=== PATIENT | male | born 1940 | race Caucasian/White ===

== ENCOUNTER 2017-03-28 11:13 | Inpatient (IN) | payer MEDICARE ==
[~2017-03-28] VITALS: Ht 172.7 cm; Wt 70.6 kg
[~2017-03-28 11:13] MED LIST: ASPI81TA44; ATOR1TAB18 PO; BENZ100 PO; NITR.3 SL; PERI8.6T PO; POLY17PO3 PO; PRAS10TA PO; TAMS0.4C67 PO
[2017-03-28 11:14] VITALS: BP 196/94; PULSE 87; RESP 17; TEMP 98.8; O2SAT 98
--- NOTE | 2017-03-28 12:07 | PD ---
HPI Chief Complaint: Complaint Time Seen by Provider: 12:03 Travel History International Travel<30 days: No Contact w/Intl Traveler<30days: No Traveled to known affect area: No History of Present Illness HPI This is a 77-year-old male who presents for evaluation. The primary complaint today is of pain to the lateral aspect of his right lower torso above the iliac crest. He reports that this pain comes and goes and seems to be worse at night. He is not currently experiencing the pain. He had an uncomfortable night last night and this is what prompted evaluation today. In addition to this the patient reports a history of urinary hesitancy, dribbling, dysuria for 10-15 years that seems to be worse over the past few months. He is being referred to a urologist by his primary care physician Dr. Nuñez. In addition the patient is complaining of constipation for the past 10 days. He reports that his only had 2 bowel movements over the past 10 days. He has tried prune juice, MiraLAX with minimal relief. He saw his primary care physician yesterday and was prescribed Fouzia-Colace which he has not yet started to take. It appears that he is being referred to gastroenterology as an outpatient as well as nephrology. He has orders from his primary care physician for outpatient KUB x-ray, kidney ultrasound and he was hoping that he can have these done today instead of tomorrow as they were scheduled. He is denying any abdominal pain, flank pain, fevers or chills, vomiting. Other than MiraLAX, he denies any recent medication changes. he has no other complaints at this time. PFSH Past Medical History Blood Disorders: No Anxiety: No Depression: No Cancer: No Cardiovascular Problems: Yes High Cholesterol: Yes Chemotherapy: No Chest Pain: No Congestive Heart Failure: No Diminished Hearing: No Endocrine: No Genitourinary: No Hypertension: No Immune Disorder: No Musculoskeletal: No Neurologic: No Psychiatric: No Reproductive: No Respiratory: Yes Immunizations Current: Yes Myocardial Infarction: Yes (02- 3 STENTS) Radiation Therapy: No Past Surgical History Abdominal Surgery: No Cardiac Surgery: Yes (STENTS ) Coronary Stent: Yes (2001) Ear Surgery: No Endocrine Surgery: No Eye Surgery: No Genitourinary Surgery: No Gynecologic Surgery: No Oral Surgery: No Thoracic Surgery: No Social History Alcohol Use: No Tobacco Use: No Substance Use: No Allergies-Medications (Allergen,Severity, Reaction): Coded Allergies: No Known Allergies (Verified , 03/28/17) Reported Meds & Prescriptions Reported Meds & Active Scripts Active Fouzia-Colace (Sennosides-Docusate Sodium) 8.6-50 Mg Tab 1 Tab PO BID PRN Miralax (Polyethylene Glycol 3350) 17 Gram Powd.pack 1 Pack PO DAILY 17 g (~1 heaping tablespoon) dissolved in 120 to 240 mL (4 to 8 ounces) of beverage, once daily Tessalon Perles (Benzonatate) 100 Mg Cap 200 Mg PO TID PRN Atorvastatin (Atorvastatin Calcium) 80 Mg Tab 80 Mg PO HS Flomax (Tamsulosin HCl) 0.4 Mg Cap 0.4 Mg PO BID Reported Aspirin Enteric Coated Adult (Aspirin) 81 Mg Tabdr Nitrostat SL (Nitroglycerin) 0.3 Mg Subl 0.3 Mg SL DIRECTED PRN ONE TABLET UNDER THE TONGUE NEEDED FOR CHEST PAIN, MAY REPEAT EVERY FIVE MINUTES FOR A TOTAL OF 3 DOSES OR CALL 911 IF NO RELIEF Effient (Prasugrel) 10 Mg Tab 10 Mg PO DAILY Review of Systems Except as stated in HPI: all other systems reviewed are Neg Physical Exam Narrative GENERAL: Well-developed well-nourished male in no acute distress SKIN: Warm and dry. HEAD: Atraumatic. Normocephalic. EYES: Pupils equal and round. No scleral icterus. No injection or drainage. ENT: No nasal bleeding or discharge. Mucous membranes pink and moist. NECK: Trachea midline. No JVD. CARDIOVASCULAR: Regular rate and rhythm. No murmur appreciated. RESPIRATORY: No accessory muscle use. Clear to auscultation. Breath sounds equal bilaterally. GASTROINTESTINAL: Abdomen soft, mild right lower quadrant tenderness to deep palpation without guarding. Somewhat distended over the bladder. There is no CVA tenderness. Rectal examination reveals no evidence of impaction. MUSCULOSKELETAL: No obvious deformities. No clubbing. No cyanosis. No edema. NEUROLOGICAL: Awake and alert. No obvious cranial nerve deficits. Motor grossly within normal limits. Normal speech. PSYCHIATRIC: Appropriate mood and affect; insight and judgment normal. Data Data Last Documented VS Vital Signs Date Time Temp Pulse Resp B/P (MAP) Pulse Ox O2 Delivery O2 Flow Rate FiO2 03/28/17 11:14 98.8 87 17 196/94 (128) 98 Orders Orders Complete Blood Count With Diff (03/28/17 12:02) Comprehensive Metabolic Panel (03/28/17 12:02) Lipase (03/28/17 12:02) Urinalysis - C+S If Indicated (03/28/17 12:02) Iv Access Insert/Monitor (03/28/17 12:02) Abdomen, Kub Only (03/28/17 12:02) Bladder Scan PRN (03/28/17 12:11) Urinary Catheter Management SHANA.Q8H (03/28/17 12:15) Urinary Catheter Insert/Apply (03/28/17 12:18) Ct Abd/Pel W/O Iv Contrast (03/28/17 12:55) Admit Order (Ed Use Only) (03/28/17 13:10) Labs Laboratory Tests Test 03/28/17 12:10 03/28/17 12:15 Urine Color LIGHT-YELLOW Urine Turbidity CLEAR Urine pH 5.5 Urine Specific [place] 1.008 Urine Protein NEG mg/dL Urine Glucose (UA) NEG mg/dL Urine Ketones NEG mg/dL Urine Occult Blood NEG Urine Nitrite NEG Urine Bilirubin NEG Urine Urobilinogen LESS THAN 2.0 MG/DL Urine Leukocyte Esterase NEG Urine RBC 1 /hpf Urine WBC 2 /hpf Microscopic Urinalysis Comment CULT NOT INDICATED White Blood Count 7.4 TH/MM3 Red Blood Count 4.44 MIL/MM3 Hemoglobin 13.3 GM/DL Hematocrit 39.9 % Mean Corpuscular Volume 90.0 FL Mean Corpuscular Hemoglobin 30.0 PG Mean Corpuscular Hemoglobin Concent 33.3 % Red Cell Distribution Width 14.4 % Platelet Count 182 TH/MM3 Mean Platelet Volume 8.2 FL Neutrophils (%) (Auto) 73.9 % Lymphocytes (%) (Auto) 15.3 % Monocytes (%) (Auto) 8.4 % Eosinophils (%) (Auto) 2.0 % Basophils (%) (Auto) 0.4 % Neutrophils # (Auto) 5.5 TH/MM3 Lymphocytes # (Auto) 1.1 TH/MM3 Monocytes # (Auto) 0.6 TH/MM3 Eosinophils # (Auto) 0.1 TH/MM3 Basophils # (Auto) 0.0 TH/MM3 CBC Comment DIFF FINAL Differential Comment Blood Urea Nitrogen 76 MG/DL Creatinine 9.44 MG/DL Random Glucose 88 MG/DL Total Protein 6.8 GM/DL Albumin 3.4 GM/DL Calcium Level 8.4 MG/DL Alkaline Phosphatase 78 U/L Aspartate Amino Transf (AST/SGOT) 16 U/L Alanine Aminotransferase (ALT/SGPT) 20 U/L Total Bilirubin 0.7 MG/DL Sodium Level 140 MEQ/L Potassium Level 5.1 MEQ/L Chloride Level 108 MEQ/L Carbon Dioxide Level 23.6 MEQ/L Anion Gap 8 MEQ/L Estimat Glomerular Filtration Rate 5 ML/MIN Lipase 837 U/L [facility] Medical Decision Making Medical Screen Exam Complete: Yes Emergency Medical Condition: Yes Medical Record Reviewed: Yes Differential Diagnosis Constipation, obstruction, fecal impaction, postobstructive uropathy, BPH, urinary retention, renal stone Narrative Course 77-year-old male with BPH presents with chronic urinary hesitancy, worse over the past 2 months, now also with constipation for the past 10 days, intermittent pains in the right side of his torso, worse at night. On examination he does have some distention over the bladder. He has mild right lower quadrant tenderness with deep palpation. Rectal examination reveals no evidence of fecal impaction. Plan a basic lab work, KUB. A Enrique catheter is placed with over 2 L of urine output. The patient reports significant improvement in his symptoms after the Enrique catheter placement. His CMP reveals a BUN of 76, creatinine 9.44, lipase 837. CONCLUSION: Large abdominal mass. Contrasted CT abdomen/pelvis recommended. Discussed with Dr. [place] and a CT of the abdomen and pelvis with oral contrast without IV contrast has been ordered. The patient will be admitted to the resident team for further evaluation and treatment. Diagnosis Primary Impression: Acute renal failure Qualified Codes: N17.9 - Acute kidney failure, unspecified Additional Impression: Urinary retention Admitting Information Admitting Physician Requests: it Sameer Birch Mar 28, 2017 12:07
[2017-03-28 12:32] LABS: BLOOD, URINE NEG (NEG); GLUCOSE,URINE NEG (NEG); KETONE, URINE NEG (NEG); NITRITE,URINE NEG (NEG); PH, URINE 5.5 (5.0-8.5); URINE COLOR LIGHT-YELLOW (YELLW/STRAW)
[2017-03-28 12:33] LABS: COMMENT (UR) CULT NOT INDICATED; CULTURE IF INDICATED CULT NOT INDICATED
[2017-03-28 12:35] LABS: AUTOMATED NEUTROPHIL # 5.5 TH/MM3 (1.8-7.7); BASOPHIL % 0.4 % (0.0-2.0); EOSINOPHIL # 0.1 TH/MM3 (0-0.4); HEMATOCRIT 39.9 % (39.0-51.0); HEMO FLAGS DIFF FINAL; LYMPH % 15.3 % (9.0-44.0); LYMPHOCYTE # 1.1 TH/MM3 (1.0-4.8); MEAN CORPUSCULAR HGB CONC 33.3 % (32.0-36.0); MONO % 8.4 % (0.0-8.0); NEUT % 73.9 % (16.0-70.0); PLATELET COUNT 182 TH/MM3 (150-450); RED BLOOD COUNT 4.44 MIL/MM3 (4.50-5.90); RED CELL DISTRIBUTION WIDTH 14.4 % (11.6-17.2); WHITE BLOOD COUNT 7.4 TH/MM3 (4.0-11.0)
--- NOTE | 2017-03-28 12:46 | RADRPT ---
EXAM DATE/TIME: 03/28/2017 12:12 [place] COMPARISON: No previous studies available for comparison. INDICATIONS : Right side abdomen pain MEDICAL HISTORY : None. SURGICAL HISTORY : None. ENCOUNTER: Initial ACUITY: 2 days PAIN SCORE: 6/10 LOCATION: Right Abdomen FINDINGS: Supine view of the abdomen was performed. The abdominal bowel gas pattern is normal. Large mass in t he central abdomen measuring approximately 21.1 x 17.2 cm. Presumed phleboliths in the pelvis. The o sseous structures are unremarkable. CONCLUSION: Large abdominal mass. Contrasted CT abdomen/pelvis recommended. Osito Delgado MD on March 28, 2017 at 12:44 Board Certified Radiologist. This report was verified electronically.
[2017-03-28 12:51] LABS: ANION GAP 8 MEQ/L (5-15); AST (GOT) 16 U/L (15-37); BICARBONATE 23.6 MEQ/L (21.0-32.0); BLOOD UREA NITROGEN 76 MG/DL (7-18); CHLORIDE 108 MEQ/L (98-107); GLOMERULAR FILTRATION RATE 5 ML/MIN (>89); POTASSIUM 5.1 MEQ/L (3.5-5.1); SODIUM (NA) 140 MEQ/L (136-145)
[2017-03-28 12:53] LABS: ALT (GPT) 20 U/L (12-78)
[2017-03-28 12:54] LABS: ALKALINE PHOSPHATASE 78 U/L (45-117); TOTAL BILIRUBIN ADULT 0.7 MG/DL (0.2-1.0)
[2017-03-28 13:28] VITALS: BP 155/78; PULSE 57; RESP 16; O2SAT 97
[2017-03-28] MEDS ORDERED: DIATRIZOATE MEGLUM/DIATRIZOATE SOD 9 ML CUP PO ONE (13:28)
[2017-03-28] MEDS ORDERED: DIATRIZOATE MEGLUM/DIATRIZOATE SOD 9 ML CUP ONE (13:32)
--- NOTE | 2017-03-28 13:52 | HHI.HP ---
[facility] Service Family Medicine Primary Care Physician Carlos Collazo , Gutierrez Nuñez MD Admission Diagnosis acute renal failure, urinary retention Diagnoses: International Travel<30 Days: No Contact w/Intl Traveler<30days: No Known Affected Area: No History of Present Illness Patient is a 77 year old man with a h/o BPH who p/w a chief complaint of not being able to urinate or have a bowel movement. Patient reports that he has had problems urinating for at least 15 years. He reports that he occasionally feels his bladder overflowing and can empty his bladder with some associated dysuria. However, more recently, he now he feels the urge to pee every hour, and he does not feel that he can fully empty his bladder. In response, he has cut his water intake way back. Also, he has been on Flomax for several years, then doubled the dose. Since then, he has tried changing when he takes it, so recently he has been taking it first thing in the morning. He reports that while driving, he doesn't have to pee, but has to go urgently when he gets home. He reports that he hasn't been moving his bowels normally for about a year. He describes pencil thin stools, small stool volume. He says he is in a pattern of not stooling for 3 days, then having small stools throughout one day. This cycling has been going on for almost a year. 4-5 days ago, he tried MiraLAX prescribed by his PCP Dr. Nuñez. He then tried prune juice, which worked initially. He tried prune juice again and had nausea. His last small BM was last night. His last good BM was a couple days ago. He also c/o occasional right hip discomfort that keeps him up at night, preventing him from sleeping. He is being referred to a urologist by his primary care physician Dr. Nuñez. He is being referred to gastroenterology as an outpatient as well as nephrology. He has orders from his primary care physician for outpatient KUB x- ray, kidney ultrasound. He is denying any abdominal pain, flank pain, fevers or chills, vomiting. Review of Systems Constitutional: COMPLAINS OF: Fatigue, Weight loss (lost 15 pounds in 6 months) , Dizziness (early in the morning), Change in appetite (decreased), DENIES: Fever, Chills Endocrine: DENIES: Polydipsia, Polyuria, Polyphagia Eyes: DENIES: Blurred vision, Diplopia, Vision loss, Double Vision Ears, nose, mouth, throat: COMPLAINS OF: Hearing loss (chronic), DENIES: Throat pain, Running Nose, Sinus Pain Respiratory: DENIES: Cough, Wheezing, Shortness of breath Cardiovascular: DENIES: Chest pain, Dyspnea on Exertion, Lower Extremity Edema Gastrointestinal: COMPLAINS OF: Constipation, Nausea, DENIES: Abdominal pain, Black stools, Bloody stools, Diarrhea, Vomiting Genitourinary: COMPLAINS OF: Urinary frequency, Urgency, Dysuria Musculoskeletal: COMPLAINS OF: Joint pain (right hip hurts to lay on it), DENIES: Back pain, Neck pain Integumentary: DENIES: Pruritus, Rash Hematologic/lymphatic: DENIES: Bruising, Lymphadenopathy Neurologic: COMPLAINS OF: Poor Balance (early in the morning), DENIES: Abnormal gait, Headache, Localized weakness, Paresthesias Psychiatric: DENIES: Mood changes, Depression Past Family Social History Past Medical History [place] x 2, 1999 and 2009 Immunology Teacher: Dr. Ortiz Last visit was 2012 CAD BPH Health maintenance: Lipids: DM screen: SBP >135 BMI above 25 FH of DM Flu shot: Tdap: Colonoscopy: 2012 and was nml per pt. Rpt 2022 Zostavax age 61: Ordered script and gave to pt to take to outside pharmacy. Pneumovax age 65 or earlier if DM or COPD: Past Surgical History stents 1999, 2009, stents x 2 in February, after having abnormal stress test Allergies: Coded Allergies: No Known Allergies (Verified , 03/28/17) Family History mother - old age, father - old age, sister - breast CA, 2 sons - DM, daughter- healthy, 3rd son- healthy Social History tobacco: none currently, smoked 1 year at age 21. ETOH: 1 beer/year. Drugs: none. Lives with , son, [id number], grandkids. Retired, prior lead quality technician. Physical Exam Vital Signs Vital Signs Date Time Temp Pulse Resp B/P (MAP) Pulse Ox O2 Delivery O2 Flow Rate FiO2 03/28/17 13:28 57 16 155/78 (103) 97 Room Air 03/28/17 11:14 98.8 87 17 196/94 (128) 98 Physical Exam GENERAL: This is a well-nourished, well-developed patient, in no apparent distress. SKIN: No rashes, ecchymoses or lesions. Cool and dry. HEAD: Atraumatic. Normocephalic. EYES: Pupils equal round and reactive. Extraocular motions intact. No scleral icterus. No injection or drainage. ENT: Nose without bleeding, purulent drainage or septal hematoma. Throat without erythema, tonsillar hypertrophy or exudate. Uvula midline. Airway patent. NECK: Trachea midline. No JVD or lymphadenopathy. Supple, nontender, no meningeal signs. CARDIOVASCULAR: Regular rate and rhythm without murmurs, gallops, or rubs. RESPIRATORY: Clear to auscultation. Breath sounds equal bilaterally. No wheezes , rales, or rhonchi. GASTROINTESTINAL: Abdomen soft, non-tender, nondistended. No hepato-splenomegaly , or palpable masses. No guarding. MUSCULOSKELETAL: Extremities without clubbing, cyanosis, or edema. No joint tenderness, effusion, or edema noted. No calf tenderness. NEUROLOGICAL: Awake and alert. Cranial nerves II through XII grossly intact. Motor and sensory grossly within normal limits. Normal speech. Laboratory Laboratory Tests Test 03/28/17 12:10 03/28/17 12:15 Urine Color LIGHT-YELLOW Urine Turbidity CLEAR Urine pH 5.5 Urine Specific [place] 1.008 Urine Protein NEG Urine Glucose (UA) NEG Urine Ketones NEG Urine Occult Blood NEG Urine Nitrite NEG Urine Bilirubin NEG Urine Urobilinogen LESS THAN 2.0 Urine Leukocyte Esterase NEG Urine RBC 1 Urine WBC 2 Microscopic Urinalysis Comment CULT NOT INDICATED White Blood Count 7.4 Red Blood Count 4.44 Hemoglobin 13.3 Hematocrit 39.9 Mean Corpuscular Volume 90.0 Mean Corpuscular Hemoglobin 30.0 Mean Corpuscular Hemoglobin Concent 33.3 Red Cell Distribution Width 14.4 Platelet Count 182 Mean Platelet Volume 8.2 Neutrophils (%) (Auto) 73.9 Lymphocytes (%) (Auto) 15.3 Monocytes (%) (Auto) 8.4 Eosinophils (%) (Auto) 2.0 Basophils (%) (Auto) 0.4 Neutrophils # (Auto) 5.5 Lymphocytes # (Auto) 1.1 Monocytes # (Auto) 0.6 Eosinophils # (Auto) 0.1 Basophils # (Auto) 0.0 CBC Comment DIFF FINAL Differential Comment Blood Urea Nitrogen 76 Creatinine 9.44 Random Glucose 88 Total Protein 6.8 Albumin 3.4 Calcium Level 8.4 Alkaline Phosphatase 78 Aspartate Amino Transf (AST/SGOT) 16 Alanine Aminotransferase (ALT/SGPT) 20 Total Bilirubin 0.7 Sodium Level 140 Potassium Level 5.1 Chloride Level 108 Carbon Dioxide Level 23.6 Anion Gap 8 Estimat Glomerular Filtration Rate 5 Lipase 837 Result Diagram: 03/28/17 1215 03/28/17 1215 Imaging Last Impressions Abdomen/Pelvis CT 03/28/17 1255 Signed Impressions: Service Date/Time: March 15:05 - CONCLUSION: 1. Enlarged prostate with thickened bladder wall most characteristic of chronic urinary outflow obstruction. There is air within the bladder and a Enrique catheter. There is moderate left sided and moderate to severe right-sided hydronephrosis. No ureteral calculi identified. There is a calcification either within the posterior bladder wall or possibly within the bladder lumen measuring about 4 mm in diameter. 2. Numerous hepatic cysts. 3. Severe coronary calcifications. 4. Colonic diverticulosis. Helder Davis MD Abdomen X-Ray 03/28/17 1202 Signed Impressions: Service Date/Time: March 12:12 - CONCLUSION: Large abdominal mass. Contrasted CT abdomen/pelvis recommended. Osito Delgado MD Renal Ultrasound 03/28/17 0000 Signed Impressions: Service Date/Time: March 14:45 - CONCLUSION: 1. Markedly abnormal bladder wall thickening and enlarged prostate. Enrique catheter present. Bilateral hydronephrosis, right greater than left. Helder Davis MD Course In the emergency department, patient had abdomen/KUB x-ray, UA, CBC, CMP, lipase , bladder scan, Enrique catheter insertion, CT abdomen and pelvis, admission order. Caprini VTE Risk Assessment Caprini VTE Risk Assessment: Mod/High Risk (score >= 2) Caprini Risk Assessment Model Point Value = 1 Point Value = 2 Point Value = 3 Point Value = 5 Age 41-60 Minor surgery BMI > 25 kg/m2 Swollen legs Varicose veins or History of unexplained or recurrent spontaneous Oral contraceptives or hormone replacement Sepsis (< 1 month) Serious lung disease, including pneumonia (< 1 month) Abnormal pulmonary function Acute myocardial infarction Congestive heart failure (< 1 month) History of inflammatory bowel disease Medical patient at bed rest Age 61-74 Arthroscopic surgery Major open surgery (> 45 min) Laparoscopic surgery (> 45 min) Malignancy Confined to bed (> 72 hours) Immobilizing plaster cast Central venous access Age >= 75 History of VTE Family history of VTE Factor V Leiden Prothrombin [id number] Lupus anticoagulant Anticardiolipin antibodies Elevated serum homocysteine Heparin-induced thrombocytopenia Other congenital or acquired thrombophilia Stroke (< 1 month) Elective arthroplasty Hip, pelvis, or leg fracture Acute spinal cord injury (< 1 month) Prophylaxis Regimen Total Risk Factor Score Risk Level Prophylaxis Regimen 0-1 Low Early ambulation 2 Moderate Order ONE of the following: *Sequential Compression Device (SCD) *Heparin 5000 units SQ BID 3-4 Higher Order ONE of the following medications: *Heparin 5000 units SQ TID *Enoxaparin/Lovenox 40 mg SQ daily (WT < 150 kg, CrCl > 30 mL/min) *Enoxaparin/Lovenox 30 mg SQ daily (WT < 150 kg, CrCl > 10-29 mL/min) *Enoxaparin/Lovenox 30 mg SQ BID (WT < 150 kg, CrCl > 30 mL/min) AND/OR *Sequential Compression Device (SCD) 5 or more Highest Order ONE of the following medications: *Heparin 5000 units SQ TID (Preferred with Epidurals) *Enoxaparin/Lovenox 40 mg SQ daily (WT < 150 kg, CrCl > 30 mL/min) *Enoxaparin/Lovenox 30 mg SQ daily (WT < 150 kg, CrCl > 10-29 mL/min) *Enoxaparin/Lovenox 30 mg SQ BID (WT < 150 kg, CrCl > 30 mL/min) AND *Sequential Compression Device (SCD) Assessment and Plan Assessment and Plan Patient is a 77 year old man with a h/o BPH who p/w a chief complaint of not being able to urinate or have a bowel movement, found to have BUN of 76, creatinine of 9.44, over 2 L in his bladder that drained out after Enrique catheter insertion. Urinary obstruction is likely due to combination of BPH and constipation. Called urologist Dr. Paredes to briefly discuss case. Dr. Paredes recommended continuing the Enrique catheter and fluid hydration, discharging the patient with Enrique catheter in place, following-up as an outpatient with urology where they can attempt voiding trials. Code Status Full code Discussed Condition With Will discuss with Dr. Torres and/or Dr. Ferrer. Problem List: (1) Urinary retention ICD Codes: R33.9 - Retention of urine, unspecified Status: Acute Plan: -Continue Enrique cath -pain meds PRN -nausea meds PRN -CT abd/pelvis showed enlarged prostate with thickened bladder consistent with chronic urinary outflow obstruction, moderate to severe hydronephrosis (2) Acute renal failure ICD Codes: N17.9 - Acute kidney failure, unspecified Status: Acute Plan: -IV NS bolus -patient tolerating PO well; encourage PO intake -Maintenance IV fluids of normal saline at 110 ml/hr -Continue to monitor -renal US showed bilateral hydronephrosis, right greater than left (3) Constipation ICD Codes: K59.00 - Constipation, unspecified Status: Acute Plan: -Fouzia-Colace by mouth twice a day, MiraLAX by mouth daily -Other anti-constipation medications when necessary -Outpatient GI follow-up for colonoscopy because history concerning for colon cancer (4) BPH (benign prostatic hyperplasia) ICD Codes: N40.0 - Benign prostatic hyperplasia Status: Chronic Plan: -Continue home medication of Flomax (5) CAD (coronary artery disease) ICD Codes: I25.10 - Atherosclerosis of coronary artery Status: Chronic Plan: -Continue home medication of atorvastatin -Continue home medication baby aspirin (6) No contraindication to deep vein thrombosis (DVT) prophylaxis ICD Codes: Z78.9 - Other specified health status Plan: -Heparin 5000 units subcutaneous every 12 hours (7) Nutrition, metabolism, and development symptoms ICD Codes: R63.8 - Other symptoms and signs concerning food and fluid intake Plan: Fluids: IV NS as above Electrolytes: Monitor and replete as necessary Nutrition: Regular basic diet Physician Certification 2 Midnight Certification Type: Admission for Inpatient Services Order for Inpatient Services The services are ordered in accordance with Medicare regulations or non- Medicare payer requirements, as applicable. In the case of services not specified as inpatient-only, they are appropriately provided as inpatient services in accordance with the 2-midnight benchmark. Estimated LOS (days): 2 2 days is the estimated time the patient will need to remain in the hospital, assuming treatment plan goals are met and no additional complications. Post-Hospital Plan: Home Problem Qualifiers (1) Acute renal failure: Qualified Codes: N17.9 - Acute kidney failure, unspecified Cruz Jones MD R2 Mar 28, 2017 13:52
--- NOTE | 2017-03-28 13:54 | PD ---
Physical Exam Narrative GENERAL: Well-nourished, well-developed patient. SKIN: Warm and dry. HEAD: Normocephalic and atraumatic. EYES: No injection or drainage. ENT: No nasal drainage noted. NECK: Supple, trachea midline. CARDIOVASCULAR: Regular rate and rhythm RESPIRATORY: No increased effort. No accessory muscle use. GASTROINTESTINAL: Abdomen soft, tender to lower abdomen with distended bladder EXTREMITIES: No edema. BACK: Nontender without obvious deformity. NEUROLOGICAL: Awake and alert. Moves all extremities. Normal speech. Data Data Last Documented VS Vital Signs Date Time Temp Pulse Resp B/P (MAP) Pulse Ox O2 Delivery O2 Flow Rate FiO2 03/28/17 11:14 98.8 87 17 196/94 (128) 98 Orders Orders Complete Blood Count With Diff (03/28/17 12:02) Comprehensive Metabolic Panel (03/28/17 12:02) Lipase (03/28/17 12:02) Urinalysis - C+S If Indicated (03/28/17 12:02) Iv Access Insert/Monitor (03/28/17 12:02) Abdomen, Kub Only (03/28/17 12:02) Bladder Scan PRN (03/28/17 12:11) Urinary Catheter Management SHANA.Q8H (03/28/17 12:15) Urinary Catheter Insert/Apply (03/28/17 12:18) Ct Abd/Pel W/O Iv Contrast (03/28/17 12:55) Admit Order (Ed Use Only) (03/28/17 13:10) Labs Laboratory Tests Test 03/28/17 12:10 03/28/17 12:15 Urine Color LIGHT-YELLOW Urine Turbidity CLEAR Urine pH 5.5 Urine Specific [place] 1.008 Urine Protein NEG mg/dL Urine Glucose (UA) NEG mg/dL Urine Ketones NEG mg/dL Urine Occult Blood NEG Urine Nitrite NEG Urine Bilirubin NEG Urine Urobilinogen LESS THAN 2.0 MG/DL Urine Leukocyte Esterase NEG Urine RBC 1 /hpf Urine WBC 2 /hpf Microscopic Urinalysis Comment CULT NOT INDICATED White Blood Count 7.4 TH/MM3 Red Blood Count 4.44 MIL/MM3 Hemoglobin 13.3 GM/DL Hematocrit 39.9 % Mean Corpuscular Volume 90.0 FL Mean Corpuscular Hemoglobin 30.0 PG Mean Corpuscular Hemoglobin Concent 33.3 % Red Cell Distribution Width 14.4 % Platelet Count 182 TH/MM3 Mean Platelet Volume 8.2 FL Neutrophils (%) (Auto) 73.9 % Lymphocytes (%) (Auto) 15.3 % Monocytes (%) (Auto) 8.4 % Eosinophils (%) (Auto) 2.0 % Basophils (%) (Auto) 0.4 % Neutrophils # (Auto) 5.5 TH/MM3 Lymphocytes # (Auto) 1.1 TH/MM3 Monocytes # (Auto) 0.6 TH/MM3 Eosinophils # (Auto) 0.1 TH/MM3 Basophils # (Auto) 0.0 TH/MM3 CBC Comment DIFF FINAL Differential Comment Blood Urea Nitrogen 76 MG/DL Creatinine 9.44 MG/DL Random Glucose 88 MG/DL Total Protein 6.8 GM/DL Albumin 3.4 GM/DL Calcium Level 8.4 MG/DL Alkaline Phosphatase 78 U/L Aspartate Amino Transf (AST/SGOT) 16 U/L Alanine Aminotransferase (ALT/SGPT) 20 U/L Total Bilirubin 0.7 MG/DL Sodium Level 140 MEQ/L Potassium Level 5.1 MEQ/L Chloride Level 108 MEQ/L Carbon Dioxide Level 23.6 MEQ/L Anion Gap 8 MEQ/L Estimat Glomerular Filtration Rate 5 ML/MIN Lipase 837 U/L [facility] Supervised Visit with [id number]: Yes Interpretation(s) CBC & BMP Diagram 03/28/17 12:15 Total Protein 6.8, Albumin 3.4, Calcium Level 8.4 L, Alkaline Phosphatase 78, Aspartate Amino Transf (AST/SGOT) 16, Alanine Aminotransferase (ALT/SGPT) 20, Total Bilirubin 0.7 Last 24 hours Impressions Abdomen X-Ray 03/28/17 1202 Signed Impressions: Service Date/Time: March 12:12 - CONCLUSION: Large abdominal mass. Contrasted CT abdomen/pelvis recommended. Osito Delgado MD Narrative Course I, Dr. marroquin, have reviewed the advance practice practitioner's documentation and am in agreement, met with the patient face to face, made the diagnosis, and the medical decision making was done by me. *My assessment and Findings: 77-year-old male presents with difficulty urinating and constipation that is been progressive. He states he can only get out small amounts. Limited bedside ultrasound shows significantly distended bladder and nursing Staff Will Place Enrique catheter. Workup reveals acute renal failure and CT scan abdomen pelvis will be performed to rule out concurrent process in addition to postobstructive renal failure and he will be admitted for further care Diagnosis Primary Impression: Acute renal failure Qualified Codes: N17.9 - Acute kidney failure, unspecified Additional Impression: Urinary retention Admitting Information Admitting Physician Requests: Admit Patricia Marroquin MD Mar 28, 2017 13:54
[2017-03-28] MEDS ORDERED: DOCUSATE SODIUM 50 MG/SENNA 8.6 MG TAB PO PRN (14:15)
[2017-03-28] MEDS ORDERED: NALOXONE HCL 0.4 MG/ML AMP IV PUSH PRN ×2 (14:30→14:45)
[2017-03-28] MEDS: SODIUM CHLOR 0.9% 1000 ML INJ 1,000 ML IV SCH ×2 (14:30→23:58)
[2017-03-28] MEDS ORDERED: SODIUM CHLOR 0.9% 1000 ML INJ 1,000 ML IV ONE (14:30)
[2017-03-28] MEDS ORDERED: BISACODYL 10 MG SUPP RECTAL PRN (14:30)
[2017-03-28] MEDS ORDERED: ONDANSETRON HCL 4 MG/2 ML VIAL IVP PRN (14:30)
[2017-03-28] MEDS ORDERED: SODIUM CHLORIDE 0.9% FLUSH 10 ML FLUSH IV FLUSH PRN (14:30)
[2017-03-28] MEDS ORDERED: MAGNESIUM HYDROXIDE SUSP 30 ML CUP PO PRN (14:30)
[2017-03-28] MEDS ORDERED: SENNOSIDES 8.6 MG TAB PO PRN (14:30)
[2017-03-28] MEDS ORDERED: ACETAMINOPHEN 325 MG TAB PO PRN ×2 (14:30→14:45)
[2017-03-28] MEDS ORDERED: LACTULOSE SYRUP 20 GM/30 ML CUP PO PRN (14:30)
[2017-03-28] MEDS ORDERED: ACETAMINOPHEN/HYDROcodone 325 MG/10 MG TAB PO PRN (14:45)
[2017-03-28] MEDS ORDERED: ACETAMINOPHEN/HYDROcodone 325 MG/5 MG TAB PO PRN (14:45)
[2017-03-28] MEDS ORDERED: MORPHINE SULFATE 4 MG/ML INJ IV PUSH PRN (14:45)
[2017-03-28] MEDS ORDERED: DOCUSATE SODIUM 50 MG/SENNA 8.6 MG TAB PO SCH (14:45)
[2017-03-28] MEDS: POLYETHYLENE GLYCOL 17 GM PKG PO SCH (14:45)
[2017-03-28] MEDS: DOCUSATE SODIUM 50 MG/SENNA 8.6 MG TAB PO SCH ×2 (15:00→21:13)
[2017-03-28 15:34] VITALS: BP 170/89; PULSE 60; RESP 16; O2SAT 100
--- NOTE | 2017-03-28 15:41 | RADRPT ---
EXAM DATE/TIME: 03/28/2017 15:05 [facility] COMPARISON: No previous studies available for comparison. INDICATIONS : Abdomen pain, unable to urinate, constipation ORAL CONTRAST: No oral contrast ingested. RADIATION DOSE: 9.96 CTDIvol (mGy) MEDICAL HISTORY : Cardiovascular disease. SURGICAL HISTORY : Carotid stent. ENCOUNTER: Initial ACUITY: 1 day PAIN SCALE: 5/10 LOCATION: diffuse abdomen TECHNIQUE: Volumetric scanning of the abdomen and pelvis was performed. Using automated exposure control and ad justment of the mA and/or kV according to patient size, radiation dose was kept as low as reasonably achievable to obtain optimal diagnostic quality images. DICOM format image data is available electro nically for review and comparison. FINDINGS: Lung bases are clear. There are dense coronary calcifications. Numerous low-attenuation lesions in the liver are most characteristic of cysts. Spleen, adrenals and pancreas demonstrate no acute findings. No calcified gallstones. There is moderate left and moderate to severe right-sided hydronephrosis and ureteral dilatation to t he level of the bladder. The bladder wall is thickened with Enrique catheter present. There is some air within the bladder. The prostate is prominent in size with an impression on the base of the bladder. No renal or ureteral calculi are identified. No free fluid. No bowel obstruction. No adenopathy. Colonic diverticulosis without evidence for diver ticulitis. No acute bony abnormalities. CONCLUSION: 1. Enlarged prostate with thickened bladder wall most characteristic of chronic urinary outflow obstr uction. There is air within the bladder and a Enrique catheter. There is moderate left sided and modera te to severe right-sided hydronephrosis. No ureteral calculi identified. There is a calcification eit her within the posterior bladder wall or possibly within the bladder lumen measuring about 4 mm in di ameter. 2. Numerous hepatic cysts. 3. Severe coronary calcifications. 4. Colonic diverticulosis. Helder Davis MD on March 28, 2017 at 15:31 Board Certified Radiologist. This report was verified electronically.
--- NOTE | 2017-03-28 16:25 | RADRPT ---
EXAM DATE/TIME: 03/28/2017 14:45 [facility] COMPARISON: No previous studies available for comparison. INDICATIONS : Increased BUN/creatinine. MEDICAL HISTORY : Myocardial infarction. Hypercholesterolemia. Dysuria. SURGICAL HISTORY : Coronary artery stent. ENCOUNTER: Initial ACUITY: 1 day PAIN SCORE: 0/10 LOCATION: Bilateral flank MEASUREMENTS: RIGHT KIDNEY: 12.5 x 6.4 x 5.4 cm LEFT KIDNEY: 12.1 x 5.2 x 6.6 cm FINDINGS: There is bilateral hydronephrosis, right greater than left similar to recent CT. No renal mass seen. Questionable right renal calcification. The bladder wall is markedly thickened up to 13 mm. The prostate is markedly enlarged and extends int o the base and posterior aspect of the bladder. CONCLUSION: 1. Markedly abnormal bladder wall thickening and enlarged prostate. Enrique catheter present. Bilateral hydronephrosis, right greater than left. Helder Davis MD on March 28, 2017 at 16:17 Board Certified Radiologist. This report was verified electronically.
[2017-03-28 16:43] VITALS: BP 161/82; PULSE 53; RESP 18; TEMP 98.3; O2SAT 95
[2017-03-28] MEDS: HEPARIN SODIUM - SQ 10,000 UNITS/ML VIAL SQ SCH (18:37)
[2017-03-28 20:00] VITALS: BP 141/77; PULSE 61; RESP 20; TEMP 98.3; O2SAT 96
[2017-03-28] MEDS: SODIUM CHLORIDE 0.9% FLUSH 10 ML FLUSH IV FLUSH SCH (21:00)
[2017-03-28] MEDS ORDERED: TAMSULOSIN HCL 0.4 MG CAP PO SCH (21:00)
[2017-03-28] MEDS: ASPIRIN 81 MG CHEW TAB CHEW SCH (21:13)
[2017-03-28] MEDS: ATORVASTATIN 80 MG TAB PO SCH (21:14)
[2017-03-29] VITALS (9 sets, daily range): BP systolic 116–141; BP diastolic 69–80; PULSE 53–70; RESP 18–19; TEMP 97.7–99; O2SAT 95–99
[2017-03-29] MEDS: HEPARIN SODIUM - SQ 10,000 UNITS/ML VIAL SQ SCH ×2 (05:10→17:52)
[2017-03-29 06:27] LABS: BICARBONATE 24.8 MEQ/L (21.0-32.0); POTASSIUM 4.6 MEQ/L (3.5-5.1)
[2017-03-29] MEDS: SODIUM CHLORIDE 0.9% FLUSH 10 ML FLUSH IV FLUSH SCH ×2 (09:00→20:43)
[2017-03-29] MEDS: ASPIRIN 81 MG CHEW TAB CHEW SCH (09:00)
[2017-03-29] MEDS: TAMSULOSIN HCL 0.4 MG CAP PO SCH (09:00)
[2017-03-29] MEDS: POLYETHYLENE GLYCOL 17 GM PKG PO SCH (09:00)
[2017-03-29] MEDS: DOCUSATE SODIUM 50 MG/SENNA 8.6 MG TAB PO SCH ×2 (09:37→21:00)
[2017-03-29] MEDS: SODIUM CHLOR 0.9% 1000 ML INJ 1,000 ML IV SCH ×2 (09:41→20:30)
[2017-03-29] MEDS ORDERED: BISACODYL 10 MG SUPP RECTAL ONE (10:15)
--- NOTE | 2017-03-29 13:06 | HHI.FPPN ---
Subjective Remarks No acute issues overnight. Vitals are stable, patient remains afebrile. He is feeling much better today and states that he is almost back to baseline. He has not had a bowel movement in several days. Enrique catheter in place draining 7600cc. He denies any chest pain, shortness of breath, fever, chills, nausea or vomiting. (Roma Hernandez MD, R3) Objective Vitals Vital Signs Date Time Temp Pulse Resp B/P (MAP) Pulse Ox O2 Delivery O2 Flow Rate FiO2 03/29/17 12:19 98.7 60 18 127/71 (89) 97 03/29/17 08:43 96 21 03/29/17 08:04 98.9 62 18 135/80 (98) 96 03/29/17 08:00 54 03/29/17 04:00 97.8 53 18 132/77 (95) 95 03/29/17 01:50 70 03/29/17 00:00 97.7 65 18 116/69 (85) 99 03/28/17 20:00 98.3 61 20 141/77 (98) 96 03/28/17 16:43 98.3 53 18 161/82 (108) 95 03/28/17 15:34 60 16 170/89 (116) 100 Room Air 03/28/17 13:28 57 16 155/78 (103) 97 Room Air I/O 03/28/17 03/28/17 03/28/17 03/29/17 03/29/17 03/29/17 07:00 15:00 23:00 07:00 15:00 23:00 Intake Total 1165 ml 880 ml Output Total 2700 ml 3500 ml 1400 ml Balance -2700 ml -2335 ml -520 ml Intake Oral 480 ml IV Total 1165 ml 400 ml Output Urine Total 2700 ml 3500 ml 1400 ml # Bowel Movements 0 (Roma Hernandez MD, R3) Result Diagram: 03/28/17 1215 03/29/17 0420 Imaging Last Impressions Abdomen/Pelvis CT 03/28/17 1255 Signed Impressions: Service Date/Time: March 15:05 - CONCLUSION: 1. Enlarged prostate with thickened bladder wall most characteristic of chronic urinary outflow obstruction. There is air within the bladder and a Enrique catheter. There is moderate left sided and moderate to severe right-sided hydronephrosis. No ureteral calculi identified. There is a calcification either within the posterior bladder wall or possibly within the bladder lumen measuring about 4 mm in diameter. 2. Numerous hepatic cysts. 3. Severe coronary calcifications. 4. Colonic diverticulosis. Helder Davis MD Abdomen X-Ray 03/28/17 1202 Signed Impressions: Service Date/Time: March 12:12 - CONCLUSION: Large abdominal mass. Contrasted CT abdomen/pelvis recommended. Osito Delgado MD Renal Ultrasound 03/28/17 0000 Signed Impressions: Service Date/Time: , March 28, 2017 14:45 - CONCLUSION: 1. Markedly abnormal bladder wall thickening and enlarged prostate. Enrique catheter present. Bilateral hydronephrosis, right greater than left. Helder Davis MD Objective Remarks GENERAL: Well-nourished, well-developed male, resting comfortably in bed. SKIN: Warm and dry. No rashes or lesions. HEAD: Normocephalic. EYES: No scleral icterus. No injection or drainage. NECK: Supple, trachea midline. No JVD or lymphadenopathy. CARDIOVASCULAR: Regular rate and rhythm without murmurs, gallops, or rubs. RESPIRATORY: Breath sounds equal and clear to auscultation bilaterally. No accessory muscle use. No wheezes or rales. GASTROINTESTINAL: Abdomen soft, non-tender, nondistended. Bowel sounds present and active. MUSCULOSKELETAL: No cyanosis, or edema. BACK: Nontender without obvious deformity. No CVA tenderness. (Roma Hernandez MD, R3) Urinary Catheter: Yes Assessment to: Continue Enrique insert reason: Obstruction/Retention (Roma Hernandez MD, R3) A/P Assessment and Plan Patient is a 77 year old man with a PMH of BPH who presented with urinary retention and constipation and was admitted for renal failure secondary to bladder outlet obstruction. Discharge Planning Anticipate discharge in the next 1-[address] Torres (Roma Hernandez MD, R3) Attending Attestation THIS CASE WAS DISCUSSED WITH THE RESIDENT PHYSICIANS. PATIENT INTERVIEWED AND EXAMINED WITH DR HERNANDEZ, I HAVE REVIEWED THE RECORD AND AGREE WITH THE ABOVE NOTE AND PLAN OF CARE WAS DISCUSSED. DISCUSSED TREATMENTS OF BPH (Marcin Torres MD) Problem List: (1) Urinary retention ICD Codes: R33.9 - Retention of urine, unspecified Status: Acute Plan: CT abd/pelvis showed enlarged prostate with thickened bladder consistent with chronic urinary outflow obstruction, moderate to severe hydronephrosis Secondary to BPH and likely constipation -Continue Enrique cath -Urology consulted for expedited outpatient evaluation (2) Acute renal failure ICD Codes: N17.9 - Acute kidney failure, unspecified Status: Acute Plan: Secondary to bladder outlet obstruction. Improving. Renal US showed bilateral hydronephrosis, right greater than left Creatinine 9.44 on admission, now trending down to 2.21 -Continue NS @ 100ml/hr -Continue to monitor (3) Constipation ICD Codes: K59.00 - Constipation, unspecified Status: Acute Plan: -Fouzia-Colace by mouth twice a day, MiraLAX by mouth daily - Will add Dulcolax suppository today. (4) BPH (benign prostatic hyperplasia) ICD Codes: N40.0 - Benign prostatic hyperplasia Status: Chronic Plan: -Continue home medication of Flomax (5) CAD (coronary artery disease) ICD Codes: I25.10 - Atherosclerosis of coronary artery Status: Chronic Plan: -Continue home medications atorvastatin and aspirin (6) No contraindication to deep vein thrombosis (DVT) prophylaxis ICD Codes: Z78.9 - Other specified health status Plan: -Heparin 5000 units subcutaneous every 12 hours (7) Nutrition, metabolism, and development symptoms ICD Codes: R63.8 - Other symptoms and signs concerning food and fluid intake Plan: Fluids: NS @ 100ml/hr Electrolytes: wnl, monitor and replete as necessary Nutrition: Regular basic diet (Roma Hernandez MD, R3) Problem Qualifiers (1) Acute renal failure: Qualified Codes: N17.9 - Acute kidney failure, unspecified (2) Constipation: Qualified Codes: K59.00 - Constipation, unspecified (3) BPH (benign prostatic hyperplasia): Qualified Codes: N40.1 - Benign prostatic hyperplasia with lower urinary tract symptoms; N13.8 - Other obstructive and reflux uropathy (4) CAD (coronary artery disease): Qualified Codes: I25.10 - Atherosclerotic heart disease of [place] coronary artery without angina pectoris Roma Hernandez MD, R3 Mar 29, 2017 13:06 Marcin Torres MD Mar 29, 2017 15:52
--- NOTE | 2017-03-29 20:27 | MB ---
cc: ROXY BRYANT MD DATE OF CONSULTATION 03/29/2017 REASON FOR CONSULTATION 1. Acute urinary retention 2. Bilateral hydronephrosis with acute renal failure 3. History of BPH with [place] HISTORY OF PRESENT ILLNESS The patient is a 77-year-old male with a history of BPH and significant lower urinary tract symptoms who presented to ER yesterday with complaints of not being able to urinate and not having a bowel movement for several days. He states he has been having problems urinating for the last 15 years. He reports that occasionally he feels like his bladder is overflowing and cannot always empty his bladder. He has a weak stream, gets up 4-5 times a night, has the urge urinate every hour. He also has occasional dysuria. He denies hematuria, nausea, vomiting or flank pain. He had been on Flomax for several years but stopped it a couple of weeks ago as he thought it was making his symptoms worse. He has been seen by Dr. Gardner last in 2012 where he had a cystoscopy done which showed an enlarged prostate with trilobar hyperplasia. He also states he has been constipated for over a year with occasionally having hard stools and going 3-4 days between bowel movements. He has tried MiraLax in the past as well as prune juice. but has not worked as well for him. He denies history of kidney stones or urinary tract infection. He denies history of blood in his urine. In the ER workup showed elevated creatinine of 9. He had a CT abdomen and pelvis without contrast done which showed a severely distended bladder with severe bilateral hydroureteronephrosis. A Enrique catheter was inserted for over 2 liters and urology was consulted. REVIEW OF SYSTEMS See HPI. All other systems reviewed otherwise are negative. PAST MEDICAL HISTORY 1. Heart attack x2 in 1999 and 2009 2. Coronary artery disease 3. Benign prostatic hypertrophy PAST SURGICAL HISTORY Cardiac stents in 1999 and 2009 and cystoscopy. ALLERGIES NO KNOWN DRUG ALLERGIES. MEDICATIONS Flomax. FAMILY HISTORY Denies urolithiasis or genitourinary ___ SOCIAL HISTORY History of tobacco use. Occasional alcohol. Denies illicit drugs. Lives with his , son, [id number] and grandkids. He is currently retired. PHYSICAL EXAMINATION VITAL SIGNS: Temperature 98.2, pulse 60, respirations 18, BP 141/77, satting 98% on room air. GENERA: He is alert x oriented times three in no apparent distress, pleasant, cooperative gentleman appears his stated age. HEENT: Normocephalic, atraumatic. Eyes - No scleral icterus. Extraocular muscles intact. NECK: Supple. Trachea is midline. No JVD. LUNGS: Clear to auscultation bilaterally. No wheezes, rales or rhonchi. HEART: Regular rhythm with no murmurs, gallops, rubs. ABDOMEN: Soft, nontender, nondistended. Positive bowel sounds. GENITOURINARY:: His penis is circumcised. Testes are descended bilaterally, normal size and consistency without mass. RECTAL: Exam not indicated at this time. Enrique catheter draining clear yellow urine. EXTREMITIES: Nontender. No clubbing, cyanosis, edema. PSYCHIATRIC: Normal affect. NEUROLOGIC: Cranial nerves II-XII intact. Strength 5/5 in four extremities. SKIN: No ulcers or rashes. Mucous membranes pink and moist. LABORATORY DATA White count 7.4, hemoglobin 13.3, hematocrit 39.9, platelet count 182. Sodium 144, potassium 4.6, chloride 103, bicarb 24.8, BUN 32, creatinine 2.21 down from 9.44, glucose 79. His urine ___ negative. IMAGING STUDIES CT abdomen and pelvis without contrast images reviewed, agree with radiologist report. The patient has had severe bilateral hydronephrosis secondary to the acute urinary retention from a large distended bladder. ASSESSMENT The patient is a 77-year-old male with a history of BPH who presented with inability to urinate, was found to be in acute renal failure secondary to acute urinary retention and constipated. PLAN Recommend home with Enrique catheter. He will then be seen as an outpatient to schedule for a cystoscopy, TURP as medication will not help relieve his obstruction at this time. Recommend treating constipation which we will defer to the primary team. We will repeat renal ultrasound in the morning to ensure that his hydronephrosis has resolved. Thank you for this consult. Please call with any questions. MD BRENNA Lawrence/ /7:18 PM /8:01 PM
[2017-03-29] MEDS: ATORVASTATIN 80 MG TAB PO SCH (21:35)
[2017-03-30] VITALS: BP 140/82; PULSE 66; RESP 19; TEMP 99.2; O2SAT 96
[2017-03-30 04:00] VITALS: BP 131/77; PULSE 59; RESP 17; TEMP 98.4; O2SAT 96
[2017-03-30] MEDS: HEPARIN SODIUM - SQ 10,000 UNITS/ML VIAL SQ SCH (05:37)
[2017-03-30] MEDS: SODIUM CHLOR 0.9% 1000 ML INJ 1,000 ML IV SCH (05:43)
[2017-03-30 08:00] VITALS: BP 139/86; PULSE 56; RESP 20; TEMP 98.5; O2SAT 94
--- NOTE | 2017-03-30 08:14 | HHI.FPPN ---
Subjective Remarks No acute issues overnight. Vitals are stable, patient remains afebrile. He had a large bowel movement last night and is feeling significantly better. Enrique catheter remains in place and draining 900 mL in the past 24 hours. Patient denies any chest pain, shortness of breath, fever, chills, nausea or vomiting. He is tolerating by mouth. Objective Vitals Vital Signs Date Time Temp Pulse Resp B/P (MAP) Pulse Ox O2 Delivery O2 Flow Rate FiO2 03/30/17 04:00 98.4 59 17 131/77 (95) 96 03/30/17 00:00 99.2 66 19 140/82 (101) 96 03/29/17 20:00 99.0 62 19 132/79 (96) 97 03/29/17 16:04 98.2 66 19 141/77 (98) 98 03/29/17 12:19 98.7 60 18 127/71 (89) 97 03/29/17 08:43 96 21 I/O 03/29/17 03/29/17 03/29/17 03/30/17 03/30/17 03/30/17 07:00 15:00 23:00 07:00 15:00 23:00 Intake Total 880 ml 840 ml 400 ml Output Total 1400 ml 900 ml Balance -520 ml 840 ml -500 ml Intake Oral 480 ml 840 ml 400 ml IV Total 400 ml Output Urine Total 1400 ml 900 ml # Bowel Movements 0 1 Result Diagram: 03/28/17 1215 03/29/17 0420 Imaging Last Impressions Abdomen/Pelvis CT 03/28/17 1255 Signed Impressions: Service Date/Time: March 15:05 - CONCLUSION: 1. Enlarged prostate with thickened bladder wall most characteristic of chronic urinary outflow obstruction. There is air within the bladder and a Enrique catheter. There is moderate left sided and moderate to severe right-sided hydronephrosis. No ureteral calculi identified. There is a calcification either within the posterior bladder wall or possibly within the bladder lumen measuring about 4 mm in diameter. 2. Numerous hepatic cysts. 3. Severe coronary calcifications. 4. Colonic diverticulosis. Helder Davis MD Abdomen X-Ray 03/28/17 1202 Signed Impressions: Service Date/Time: March 12:12 - CONCLUSION: Large abdominal mass. Contrasted CT abdomen/pelvis recommended. Osito Delgado MD Renal Ultrasound 03/28/17 0000 Signed Impressions: Service Date/Time: , March 28, 2017 14:45 - CONCLUSION: 1. Markedly abnormal bladder wall thickening and enlarged prostate. Enrique catheter present. Bilateral hydronephrosis, right greater than left. Helder Davis MD Objective Remarks GENERAL: Well-nourished, well-developed male, resting comfortably in bed. SKIN: Warm and dry. No rashes or lesions. HEAD: Normocephalic. EYES: No scleral icterus. No injection or drainage. NECK: Supple, trachea midline. No JVD or lymphadenopathy. CARDIOVASCULAR: Regular rate and rhythm without murmurs, gallops, or rubs. RESPIRATORY: Breath sounds equal and clear to auscultation bilaterally. No accessory muscle use. No wheezes or rales. GASTROINTESTINAL: Abdomen soft, non-tender, nondistended. Bowel sounds present and active. GENITOURINARY: Enrique catheter draining clear yellow urine. MUSCULOSKELETAL: No cyanosis, or edema. BACK: Nontender without obvious deformity. No CVA tenderness. Urinary Catheter: Yes Assessment to: Continue Enrique insert reason: Obstruction/Retention A/P Assessment and Plan Patient is a 77 year old man with a PMH of BPH who presented with urinary retention and constipation and was admitted for renal failure secondary to bladder outlet obstruction. Discharge Planning Anticipate discharge home today pending repeat renal US. sdw Dr. Torres Problem List: (1) Urinary retention ICD Codes: R33.9 - Retention of urine, unspecified Status: Resolved Plan: CT abd/pelvis showed enlarged prostate with thickened bladder consistent with chronic urinary outflow obstruction, moderate to severe hydronephrosis Secondary to BPH and likely constipation -Continue Enrique cath, will discharge home with Enrique cath -Urology consulted- appreciate recommendations, recommend outpatient cystoscopy. Repeat renal US today to ensure that hydronephrosis has resolved. (2) Acute renal failure ICD Codes: N17.9 - Acute kidney failure, unspecified Status: Resolved Plan: Resolved Secondary to bladder outlet obstruction. Improving. Renal US showed bilateral hydronephrosis, right greater than left Creatinine 9.44 on admission, trending down to wnl at 1.01 today -DC NS @ 100ml/hr -Continue to monitor (3) Constipation ICD Codes: K59.00 - Constipation, unspecified Status: Resolved Plan: - Continue Fouzia-Colace by mouth twice a day, MiraLAX by mouth daily PRN constipation (4) BPH (benign prostatic hyperplasia) ICD Codes: N40.0 - Benign prostatic hyperplasia Status: Chronic Plan: -Continue home medication of Flomax (5) CAD (coronary artery disease) ICD Codes: I25.10 - Atherosclerosis of coronary artery Status: Chronic Plan: -Continue home medications atorvastatin and aspirin (6) No contraindication to deep vein thrombosis (DVT) prophylaxis ICD Codes: Z78.9 - Other specified health status Plan: -Heparin 5000 units subcutaneous every 12 hours (7) Nutrition, metabolism, and development symptoms ICD Codes: R63.8 - Other symptoms and signs concerning food and fluid intake Plan: Fluids: DC NS @ 100ml/hr Electrolytes: wnl, monitor and replete as necessary Nutrition: Regular basic diet Problem Qualifiers (1) Acute renal failure: Qualified Codes: N17.9 - Acute kidney failure, unspecified (2) Constipation: Qualified Codes: K59.00 - Constipation, unspecified (3) CAD (coronary artery disease): Qualified Codes: I25.10 - Atherosclerotic heart disease of [place] coronary artery without angina pectoris Roma Ferrer MD, R3 Mar 30, 2017 08:14
--- NOTE | 2017-03-30 08:15 | HHI.DCPOC ---
Discharge Care Plan Diagnosis: (1) Urinary retention (2) Acute renal failure Goals to Promote Your Health * To prevent worsening of your condition and complications * To maintain your health at the optimal level Directions to Meet Your Goals Take your medications as prescribed Follow your dietary instruction Follow activity as directed Keep your appointments as scheduled Take your immunizations and boosters as scheduled If your symptoms worsen call your PCP, if no PCP go to Urgent Care Center or Emergency Room Smoking is Dangerous to Your Health. Avoid second hand smoke Call the 24-hour hour crisis hotline for domestic abuse at Roma Ferrer MD, R3 Mar 30, 2017 08:15
[2017-03-30 08:24] LABS: BICARBONATE 24.3 MEQ/L (21.0-32.0)
[2017-03-30] MEDS: POLYETHYLENE GLYCOL 17 GM PKG PO SCH (09:00)
[2017-03-30] MEDS: TAMSULOSIN HCL 0.4 MG CAP PO SCH (09:00)
[2017-03-30] MEDS: DOCUSATE SODIUM 50 MG/SENNA 8.6 MG TAB PO SCH (09:27)
--- NOTE | 2017-03-30 09:27 | RADRPT ---
EXAM DATE/TIME: 03/30/2017 07:59 [place] COMPARISON: CT ABDOMEN & PELVIS W/O CONTRAST, March 28, 2017, 15:05. US KIDNEY/RENAL/BLADDER, March 28, 2017, 14:45. INDICATIONS : Hydronephrosis. MEDICAL HISTORY : Myocardial infarction. Hypercholesterolemia. Dysuria. SURGICAL HISTORY : Coronary artery stent. ENCOUNTER: Subsequent ACUITY: 3 days PAIN SCORE: 0/10 LOCATION: Bilateral flank MEASUREMENTS: RIGHT KIDNEY: 13.4 x 6.3 x 7.0 cm LEFT KIDNEY: 11.6 x 5.0 x 6.3 cm FINDINGS: RIGHT KIDNEY: Renal cortex is normal in thickness and echotexture. There is severe hydronephrosis. No mass or stone is visualized. LEFT KIDNEY: Renal cortex is normal in thickness and echotexture. There is mild to moderate hydronephrosis. No mas s or stone is visualized. BLADDER: Enrique catheter is present within a partially distended urinary bladder. There is marked bladder wall thickening with trabeculated wall. Prostate gland is enlarged. CONCLUSION: 1. Persistent bilateral hydronephrosis, right greater than left. This is similar to the prior examina tion. 2. Enrique catheter is present in the urinary bladder but there remains some fluid in the bladder and u rinary bladder wall demonstrates severe wall thickening and trabeculation. This may be related to chr onic bladder outlet obstruction given the prostatomegaly. Carmelo Morrison MD on March 30, 2017 at 9:23 Board Certified Radiologist. This report was verified electronically.
[2017-03-30] MEDS: SODIUM CHLORIDE 0.9% FLUSH 10 ML FLUSH IV FLUSH SCH (09:29)
[2017-03-30] MEDS: ASPIRIN 81 MG CHEW TAB CHEW SCH (09:29)
[2017-03-30 09:38] VITALS: O2SAT 96
[2017-03-30] MEDS ORDERED: PNEUMOCOCCAL POLYVALENT INJ 25 MCG/0.5 ML SYR IM ONE (10:00)
[2017-04-25] MEDS ORDERED: ASPI81CH CHEW (09:24)
== END 2017-03-30 13:26 | disposition home or self-care (01) | DRG 684 ==
LOC: NEPC 11:13 → NEDA 13:11 → N04B 16:23
PROVIDERS: ADMIT Family Medicine; ATTEND Family Medicine
DX: N17.9 Acute kidney failure, unspecified (principal); N40.1 Benign prostatic hyperplasia with lower urinary tract symptoms; N13.30 Unspecified hydronephrosis; R39.11 Hesitancy of micturition; K59.00 Constipation, unspecified; N32.0 Bladder-neck obstruction; R19.00 Intra-abdominal and pelvic swelling, mass and lump, unspecified site; I25.10 Atherosclerotic heart disease of native coronary artery without angina pectoris; Z95.5 Presence of coronary angioplasty implant and graft; I25.2 Old myocardial infarction
CPT/HCPCS: 51702; 74000; 74176; 76775; 80048; 80053; 81001; 83690; 85025; J1644; J7030; Q9963

== ENCOUNTER 2017-04-11 12:55 | Day surgery (SDC) | payer MEDICARE ==
[~2017-04-11] VITALS: Ht 172.7 cm; Wt 67.2 kg
[~2017-04-11 12:55] MED LIST changes: -BENZ100 PO; +LIDOCAINE HCL 1% PF 5 ML AMPULE OTHER ONE; -NITR.3 SL; +ONDANSETRON HCL 4 MG/2 ML VIAL IV PUSH ONE; +PHENYLEPH/NS 1000 MCG/10 ML SYR IV ONE; -PRAS10TA PO; +PROPOFOL 200 MG/20 ML AMP IV ONE; +ePHEDrine/NS 25 MG/5 ML SYR IV ONE
[2017-04-11] MEDS ORDERED: SODIUM CHLORID 0.9% 500 ML IV PRN (13:15)
[2017-04-11] MEDS ORDERED: INSULIN HUMAN REGULAR 1,000 UNITS/10 ML VIAL SQ PRN (13:15)
[2017-04-11] MEDS ORDERED: POVIDONE IODINE 5% (ANTISEPSIS KIT) 4 APPLICATIONS EACH NARE PRN (13:15)
[2017-04-11] MEDS ORDERED: LACTATED RINGER'S 1000 ML IV PRN (13:15)
[2017-04-11] MEDS ORDERED: CHLORHEXIDINE GLUCONATE 2 % 1 PACK (2 CLOTHS) TOPICAL PRN (13:15)
[2017-04-11] MEDS ORDERED: METOPROLOL TARTRATE 25 MG TAB PO PRN (13:15)
[2017-04-11] MEDS ORDERED: ceFAZolin 2 GM PREMIX 50 ML IV SCH (13:15)
[2017-04-11] MEDS ORDERED: TAMS5CAP PO (13:34)
[2017-04-11 13:53] LABS: PROTHROMBIN TIME - PATIENT 10.5 SEC (9.8-11.6)
[2017-04-11] MEDS ORDERED: *MEPERIDINE 25 MG INJ VIAL PERIprocedural Use ONLY ONE (18:35)
[2017-04-11] MEDS ORDERED: DO NOT ADM ANY ANTICOAGULANT DRUGS PRN (18:35)
[2017-04-11] MEDS ORDERED: MORPHINE SULFATE 2 MG/ML INJ ONE (19:10)
[2017-04-11] MEDS ORDERED: MORPHINE SULFATE 4 MG/ML INJ ONE (19:10)
[2017-04-11] MEDS ORDERED: MEPERIDINE HCL 25 MG/ML VIAL ONE (20:31)
[2017-04-11] MEDS ORDERED: PERC5TAB12 PO ×2 (21:13→21:15)
[2017-04-11 23:44] VITALS: BP 137/81; PULSE 99; TEMP 98; O2SAT 95
[2017-04-11 23:56] VITALS: RESP 16
--- NOTE | 2017-04-12 13:15 | EKG ---
Date Performed: 04/11/2017 Time Performed: 13:30:49 PTAGE: 77 years EKG: Sinus rhythm WITH OCCASIONAL VENTRICULAR PREMATURE COMPLEXES BORDERLINE LEFT AXIS DEVIATION BORDERLINE ECG PREVIOUS TRACING : 03/30/2010 06.32 Compared to prior tracing no significant change DOCTOR: Yunior Portillo Interpretating Date/Time 04/12/2017 13:12:01
[2017-04-25] MEDS ORDERED: ASPI81CH CHEW (09:24)
--- NOTE | 2017-05-07 13:11 | MP ---
cc: ATUL BRYANT MD DATE OF SURGERY 04/11/2017 PREOPERATIVE DIAGNOSIS 1. BPH 2. Acute renal pelvis secondary urinary retention. POSTOPERATIVE DIAGNOSIS 1. BPH 2. Acute renal pelvis secondary urinary retention. PROCEDURE PERFORMED 1. Cystourethroscopy 2. TURP SURGEON Atul Bryant MD ANESTHESIA General COMPLICATIONS None PREOP ANTIBIOTICS Ancef one gram IV DRAINS A 24-Ukrainian three way Enrique catheter to gravity drainage. SPECIMENS Prostate for permanent BLOOD LOSS Minimal DISPOSITION To recovery INDICATIONS The patient is a 77-year-old male with a long standing history of lower urinary tract disease managed with Flomax and finasteride. Over the last couple of years, he has progressively worsened until recently where he was having significant lower discomfort and unable to urinate. He came to the ER where he was found to have bilateral hydronephrosis with a distended bladder with a creatinine of 8. A Enrique catheter was placed for over one liter. Over the next couple of days, his hydronephrosis resolved and his creatinine returned to normal. Due to the presence of the acute renal failure, he was then set up for definitive relief of his obstruction doing a TURP. After the risks, benefits and alternatives were explained, the patient agreed to the risks of erectile dysfunction, urinary incontinence, persist urinary retention, and patient would like to proceed. Informed consent was obtained. DETAILS OF THE PROCEDURE The patient identified, brought to the operating room and placed in supine on the operating room table. A time-out was performed under the direction of anesthesiology. The patient and induced under general anesthetic. Preoperative antibiotics in the form of Ancef 2 grams IV were given before the start of the procedure. The patient was then placed in the dorsolithotomy position, prepped and draped in the normal sterile surgical fashion. A 27-Ukrainian sheath with obturator was then carefully passed into the patient's bladder per urethra without any difficulty. The bladder was then drained. The bipolar resectoscope was then carefully inserted. The bladder was inspected. It was 2+ trabeculated. No tumor, stones or diverticula. A very enlarged bi-valving median lobe was noted. This was taken down to the level of the bladder neck. At this time, the rest was approximately 5 cm in length. The adenoma was then resected between the 1 and 5 and [address] position all the way back to the verumontanum. The ureteral orifices were inspected throughout the case and appeared to be patent. I did not go past the verumontanum distally. The was used to remove many of the prostatic chips that were not vaporized with the bipolar button electrode. At this time, hemostasis was adequate. After performing a second look, his prostatic channel appeared to be wide open. The large bivalved median lobe had been resected. At this time, the bladder was then drained. The 24-Ukrainian urinary catheter was placed and will be placed on traction for one hour. He was started on continuous bladder irrigation. This concluded the procedure. The patient was extubated and sent to recovery in stable condition. He will be discharged home per PACU protocol with the catheter in place. We will remove the catheter in three to four days. MD BRENNA Lawrence/JOEY /12:40 PM /12:54 PM
--- NOTE | 2017-05-07 13:11 | MP ---
cc: ATUL BRYANT MD DATE OF SURGERY 04/11/2017 PREOPERATIVE DIAGNOSIS 1. BPH 2. Acute renal pelvis secondary urinary retention. POSTOPERATIVE DIAGNOSIS 1. BPH 2. Acute renal pelvis secondary urinary retention. PROCEDURE PERFORMED 1. Cystourethroscopy 2. TURP SURGEON Atul Bryant MD ANESTHESIA General COMPLICATIONS None PREOP ANTIBIOTICS Ancef one gram IV DRAINS A 24-Uzbek three way Enrique catheter to gravity drainage. SPECIMENS Prostate for permanent BLOOD LOSS Minimal DISPOSITION To recovery INDICATIONS The patient is a 77-year-old male with a long standing history of lower urinary tract disease managed with Flomax and finasteride. Over the last couple of years, he has progressively worsened until recently where he was having significant lower discomfort and unable to urinate. He came to the ER where he was found to have bilateral hydronephrosis with a distended bladder with a creatinine of 8. A Enrique catheter was placed for over one liter. Over the next couple of days, his hydronephrosis resolved and his creatinine returned to normal. Due to the presence of the acute renal failure, he was then set up for definitive relief of his obstruction doing a TURP. After the risks, benefits and alternatives were explained, the patient agreed to the risks of erectile dysfunction, urinary incontinence, persist urinary retention, and patient would like to proceed. Informed consent was obtained. DETAILS OF THE PROCEDURE The patient identified, brought to the operating room and placed in supine on the operating room table. A time-out was performed under the direction of anesthesiology. The patient and induced under general anesthetic. Preoperative antibiotics in the form of Ancef 2 grams IV were given before the start of the procedure. The patient was then placed in the dorsolithotomy position, prepped and draped in the normal sterile surgical fashion. A 27-Uzbek sheath with obturator was then carefully passed into the patient's bladder per urethra without any difficulty. The bladder was then drained. The bipolar resectoscope was then carefully inserted. The bladder was inspected. It was 2+ trabeculated. No tumor, stones or diverticula. A very enlarged bi-valving median lobe was noted. This was taken down to the level of the bladder neck. At this time, the rest was approximately 5 cm in length. The adenoma was then resected between the 1 and 5 and 7 o'clock position all the way back to the verumontanum. The ureteral orifices were inspected throughout the case and appeared to be patent. I did not go past the verumontanum distally. The was used to remove many of the prostatic chips that were not vaporized with the bipolar button electrode. At this time, hemostasis was adequate. After performing a second look, his prostatic channel appeared to be wide open. The large bivalved median lobe had been resected. At this time, the bladder was then drained. The 24-Uzbek urinary catheter was placed and will be placed on traction for one hour. He was started on continuous bladder irrigation. This concluded the procedure. The patient was extubated and sent to recovery in stable condition. He will be discharged home per PACU protocol with the catheter in place. We will remove the catheter in three to four days. MD BRENNA Lawrence/JOEY /12:40 PM /12:54 PM
--- NOTE | 2017-05-07 13:11 | MP ---
cc: ATUL BRYANT MD DATE OF SURGERY 04/11/2017 PREOPERATIVE DIAGNOSIS 1. BPH 2. Acute renal pelvis secondary urinary retention. POSTOPERATIVE DIAGNOSIS 1. BPH 2. Acute renal pelvis secondary urinary retention. PROCEDURE PERFORMED 1. Cystourethroscopy 2. TURP SURGEON Atul Bryant MD ANESTHESIA General COMPLICATIONS None PREOP ANTIBIOTICS Ancef one gram IV DRAINS A 24-Mongolian three way Enrique catheter to gravity drainage. SPECIMENS Prostate for permanent BLOOD LOSS Minimal DISPOSITION To recovery INDICATIONS The patient is a 77-year-old male with a long standing history of lower urinary tract disease managed with Flomax and finasteride. Over the last couple of years, he has progressively worsened until recently where he was having significant lower discomfort and unable to urinate. He came to the ER where he was found to have bilateral hydronephrosis with a distended bladder with a creatinine of 8. A Enrique catheter was placed for over one liter. Over the next couple of days, his hydronephrosis resolved and his creatinine returned to normal. Due to the presence of the acute renal failure, he was then set up for definitive relief of his obstruction doing a TURP. After the risks, benefits and alternatives were explained, the patient agreed to the risks of erectile dysfunction, urinary incontinence, persist urinary retention, and patient would like to proceed. Informed consent was obtained. DETAILS OF THE PROCEDURE The patient identified, brought to the operating room and placed in supine on the operating room table. A time-out was performed under the direction of anesthesiology. The patient and induced under general anesthetic. Preoperative antibiotics in the form of Ancef 2 grams IV were given before the start of the procedure. The patient was then placed in the dorsolithotomy position, prepped and draped in the normal sterile surgical fashion. A 27-Mongolian sheath with obturator was then carefully passed into the patient's bladder per urethra without any difficulty. The bladder was then drained. The bipolar resectoscope was then carefully inserted. The bladder was inspected. It was 2+ trabeculated. No tumor, stones or diverticula. A very enlarged bi-valving median lobe was noted. This was taken down to the level of the bladder neck. At this time, the rest was approximately 5 cm in length. The adenoma was then resected between the 1 and 5 and 7 o'clock position all the way back to the verumontanum. The ureteral orifices were inspected throughout the case and appeared to be patent. I did not go past the verumontanum distally. The was used to remove many of the prostatic chips that were not vaporized with the bipolar button electrode. At this time, hemostasis was adequate. After performing a second look, his prostatic channel appeared to be wide open. The large bivalved median lobe had been resected. At this time, the bladder was then drained. The 24-Mongolian urinary catheter was placed and will be placed on traction for one hour. He was started on continuous bladder irrigation. This concluded the procedure. The patient was extubated and sent to recovery in stable condition. He will be discharged home per PACU protocol with the catheter in place. We will remove the catheter in three to four days. MD BRENNA Lawrence/JOEY /12:40 PM /12:54 PM
== END 2017-04-11 23:45 | disposition home or self-care (01) ==
LOC: HSDC 12:55
PROVIDERS: ATTEND Urology
DX: N40.1 Benign prostatic hyperplasia with lower urinary tract symptoms (principal); R33.8 Other retention of urine; N13.30 Unspecified hydronephrosis; N17.9 Acute kidney failure, unspecified; I24.0 Acute coronary thrombosis not resulting in myocardial infarction; E78.00 Pure hypercholesterolemia, unspecified; Z01.818 Encounter for other preprocedural examination
CPT/HCPCS: 00914; 52648; 85610; 86850; 86900; 86901; 88305; 93005; J0690; J2175; J2270; J2370; J2405; J3010; J7120; 88307